=== PATIENT | male | born 1965 | race Caucasian/White ===

== ENCOUNTER 2019-02-05 11:44 | Day surgery (SDC) | payer OTHER ==
[~2019-02-05] VITALS: Ht 190.5 cm; Wt 107.2 kg
[2019-02-05 13:27] VITALS: Ht 190.5 cm; Wt 107.2 kg
[2019-02-05 13:33] VITALS: BP 126/94; PULSE 87; RESP 16
[2019-02-05] MEDS ORDERED: FENTAnyl 50 MCG/ML VIAL ONE ×2 (13:37)
[2019-02-05] MEDS ORDERED: MIDAZOLAM 1 MG/ML 2 ML INJ ONE ×3 (13:37→13:58)
--- NOTE | 2019-02-05 14:08 | OPR ---
Date/Time of Note Date/Time of Note DATE: 02/05/19 TIME: 14:04 Operative Report Procedure Date: February 05, 2019 Preoperative Diagnosis Atrial Fibrillation Postoperative Diagnosis Sinus rhythm. Operation/Procedure Performed DC Electrical Cardioversion Surgeon see signature line Cattle Feeder none Anesthesia Type: moderate sedation Estimated Blood Loss: none Transfusion none Specimen none Grafts/Implants none Complications none Pt Condition Post Procedure: stable Disposition: PACU Procedure Description Pads placed in AP position 120J synchroized cardioversion performed. Resultant rhythm was sinus rhythm. No complications. Patient tolerated procedure well. Final result: Successful lutheran of sinus rhythm. JEFF SHARMA February 05, 2019 14:08
[2019-02-05 15:05] VITALS: BP 132/92; PULSE 69; RESP 18
[2019-02-05 15:50] VITALS: BP 132/92; PULSE 69; RESP 18
[2019-02-05 16:00] VITALS: BP 144/94; PULSE 74; RESP 18
--- NOTE | 2019-02-05 18:52 | RADRPT ---
Vent Rate: 76 bpm RR Interval: 746 msec NM Interval: [id number] msec QRS Duration: 94 msec QT Interval: 416 msec QTC Interval: 482 msec P-R-T [place]: [id number] - 89 - 68 degrees Atrial fibrillation...V-rate 62- 87, irreg A-activity Ventricular premature complex...V complex w/ short R-R interval Electronically Signed By: Adalberto Patton
== END 2019-02-05 16:39 | disposition home or self-care (01) ==
LOC: SDS 11:44
PROVIDERS: ATTEND Internal Medicine
DX: I48.91 Unspecified atrial fibrillation (principal)
CPT/HCPCS: 92960; 93005; J2250; J3010; Z7610

== ENCOUNTER 2019-04-06 10:18 | Day surgery (SDC) | payer OTHER ==
[~2019-04-06] VITALS: Ht 188 cm; Wt 406.9 kg
[2019-04-06 11:50] VITALS: Ht 188 cm; Wt 406.9 kg
[2019-04-06] MEDS ORDERED: ELIQUIS (11:57)
--- NOTE | 2019-04-06 12:09 | PREAC ---
Date/Time of Note Date/Time of Note DATE: 04/06/19 TIME: 12:08 Anesthesia Eval and Record Evaluation Time Pre-Procedure Interview DATE: 04/06/19 TIME: 12:08 Age 54 Sex male NPO: 8 hrs Preoperative diagnosis positive ocult blood Planned procedure colonoscopy Past Medical History Past Medical History: Includes Cardio: Arrythmia (A fib) Surgery & Anesthesia Issues No known issue Meds Anticoagulation: Yes (last friday) Beta Alida within 24 hr: No Reason Beta Alida not given: Pt. not on B-Alida Reported Medications [Eliquis] No Conflict Check 04/06/19 Meds reviewed: Yes Allergies Coded Allergies: No Known Allergy (Unverified , 04/06/19) Allergies Reviewed: Yes Labs/Studies Labs Reviewed: Reviewed by anesthesiologist test: N/A Studies: ECG (afib), CXR (n/a) Pre-procedure Exam Airway: Adequate mouth opening Mallampati: Mallampati I Teeth: Normal Lung: Normal Heart: Normal ASA Physical Status ASA physical status: 2 Emergency: None Planned Anesthetic General/MAC: MAC Planned Pain Management Parenteral pain med Pre-operative Attestations Prior to commencing anesthesia and surgery, the patient was re-evaluated, there was verification of: *The patient's identity *The results of appropriate recent lab work and preoperative vital signs *The above evaluation not changing prior to induction *Anesthetic plan, risk benefits, alternative and complications discussed with patient/family; questions answered; patient/family understands, accepts and wishes to proceed. KATIUSKA MAN MD Apr 06, 2019 12:09
[2019-04-06] MEDS ORDERED: FENTAnyl 50 MCG/ML VIAL ONE (12:14)
[2019-04-06] MEDS ORDERED: PROPOFOL 20 ML ONE (12:14)
[2019-04-06 13:05] VITALS: BP 142/99; PULSE 77; RESP 26
[2019-04-06 14:13] VITALS: BP 111/78; PULSE 75; RESP 20
--- NOTE | 2019-04-06 16:44 | PAC ---
Date/Time of Note Date/Time of Note DATE: 04/06/19 TIME: 16:44 Post-Anesthesia Notes Post-Anesthesia Note Last documented vital signs Vital Signs Date Temp Pulse Resp B/P (MAP) Pulse Ox O2 O2 Flow FiO2 Time Delivery Rate 04/06/19 97.6 75 20 111/78 95 Room Air 14:13 (89) 04/06/19 97.5 13:05 Activity: WNL Respiratory function: WNL Cardiovascular function: WNL Mental status: Baseline Pain reasonably controlled: Yes Hydration appropriate: Yes Nausea/Vomiting absent: No KATIUSKA MAN MD Apr 06, 2019 16:44
== END 2019-04-06 14:56 | disposition home or self-care (01) ==
LOC: GIL 10:18
PROVIDERS: ATTEND Internal Medicine Gastroenterology
DX: K92.1 Melena (principal); K57.30 Diverticulosis of large intestine without perforation or abscess without bleeding; K64.8 Other hemorrhoids
CPT/HCPCS: 45378; J3010; Z7610

== ENCOUNTER 2019-07-09 06:28 | Day surgery (SDC) | payer OTHER ==
[2019-07-08 17:07] VITALS: BMI 30.3
[~2019-07-09] VITALS: Ht 188 cm; Wt 104.0 kg
[~2019-07-09 06:28] MED LIST: AMIO200T4 PO; APIX5TAB PO; ELIQUIS; MULT-542 PO
[2019-07-09 07:25] VITALS: BP 136/95; PULSE 64; RESP 17
[2019-07-09 07:26] VITALS: Ht 188 cm; Wt 104.0 kg
[2019-07-09] MEDS ORDERED: MIDAZOLAM 1 MG/ML 2 ML INJ ONE ×2 (07:49→07:57)
[2019-07-09] MEDS ORDERED: FENTAnyl 50 MCG/ML VIAL ONE (07:49)
[2019-07-09 09:20] VITALS: BP 131/58; PULSE 58; RESP 20
== END 2019-07-09 11:20 | disposition home or self-care (01) ==
LOC: SDS 06:28
PROVIDERS: ATTEND Internal Medicine
DX: I48.91 Unspecified atrial fibrillation (principal)
CPT/HCPCS: 92960; 93005; J2250; J3010; Z7610